=== PATIENT | female | born 1965 | race Hispanic/Latino ===

== ENCOUNTER 2016-08-04 15:56 | Emergency (ER) | payer OTHER ==
[2016-08-04 16:15] VITALS: TEMP 99
--- NOTE | 2016-08-04 17:22 | ED.PDOC ---
History of Present Illness - General Chief Complaint: ENT Problem Stated Complaint: sore throat Time Seen by Provider: 08/04/16 17:21 Source: patient Exam Limitations: no limitations - History of Present Illness Initial Comments: Ms. Alejandra Looney 50 y/o female with DM/htn stated that she had lunch with her son today and experience achy throat on swallowing and since it started its not any betterno fever no nasal congestion. Timing/Duration: this afternoon Severity: moderate EENT Location: throat Prearrival Treatment: no prearrival treatment Improving Factors: nothing Worsening Factors: nothing Associated Symptoms: sore throat Allergies/Adverse Reactions: Allergies NO KNOWN ALLERGY Allergy (Verified 04/27/12 13:48) Home Medications: Ambulatory Orders Amoxicillin [Amoxil] 500 mg PO TID #30 cap 08/04/16 Gabapentin 08/04/16 Imuran 08/04/16 Lisinopril 08/04/16 Metformin HCl 08/04/16 Review of Systems - Review of Systems Constitutional: States: no symptoms reported EENTM: States: see HPI Respiratory: States: no symptoms reported Cardiology: States: see HPI Gastrointestinal/Abdominal: States: no symptoms reported Genitourinary: States: no symptoms reported Musculoskeletal: States: no symptoms reported Skin: States: no symptoms reported Neurological: States: no symptoms reported Endocrine: States: no symptoms reported Hematologic/Lymphatic: States: no symptoms reported Past Medical History (General) - Patient Medical History Hx Stroke: No Hx Asthma: Yes Hx Congestive Heart Failure: No Hx Hypertension: Yes Hx Diabetes: Yes Hx Cancer: Yes - Kidney Hx MRSA: No Hx Other PMH: Yes - kidney cancer in remission Surgical History: cholecystectomy, tonsillectomy, other - myomectomy left nephrectomy ,d/c - Vaccination History Hx Influenza Vaccination: No Hx Pneumococcal Vaccination: Yes - Social History Hx Tobacco Use: No Family Medical History - Family History Mother Living Status: Still Living Hx Family Hypertension: Yes Hx Cardiac Disease: Yes - dad Hx Family Diabetes: Yes - several family members Physical Exam - Physical Exam General Appearance: Alert, No apparent distress Eye Exam: bilateral normal Ear Exam: bilateral ear: auricle normal, canal normal, TM normal Nasal Exam: normal inspection Throat Exam: other - pharyngeal erythema Neck: non-tender, full range of motion, supple, normal inspection Cardiovascular/Respiratory: regular rate, rhythm, no M/R/G, normal peripheral pulses, no JVD, normal breath sounds Abdominal Exam: non-tender, no organomegaly Neurologic: alert, normal mood/affect, oriented x 3 Skin Exam: normal color, warm/dry Progress - Results/Orders Results/Orders: 08/04/16 16:22 STREP A SCREEN CULTURE Stat Laboratory Results Group A Strep Rapid Negative (NEGATIVE) 08/04/16 16:22 Departure - Departure Clinical Impression: Pharyngitis Time of Disposition: 17:36 Disposition: Discharge to Home or Self Care Condition: Good Departure Forms: ED Discharge - Pt. Copy, Patient Portal Self Enrollment Instructions: Sore Throat Prescriptions: Amoxicillin [Amoxil] 500 mg PO TID #30 cap Home Medications: Ambulatory Orders Amoxicillin [Amoxil] 500 mg PO TID #30 cap 08/04/16 Gabapentin 08/04/16 Imuran 08/04/16 Lisinopril 08/04/16 Metformin HCl 08/04/16
[2016-08-04 17:51] VITALS: BP 160/97; O2SAT 99
== END 2016-08-04 17:50 | disposition home or self-care (01) ==
LOC: ER 15:56
DX: J02.9 Acute pharyngitis, unspecified (principal); I10 Essential (primary) hypertension; E11.9 Type 2 diabetes mellitus without complications; J45.909 Unspecified asthma, uncomplicated; Z85.528 Personal history of other malignant neoplasm of kidney; Z79.899 Other long term (current) drug therapy; Z90.5 Acquired absence of kidney

== ENCOUNTER → 2017-02-15 | Outpatient (CLI) | payer OTHER | END | disposition home or self-care (01) | LOC: YCFC.O 10:59 | DX: I10 Essential (primary) hypertension (principal); E66.01 Morbid (severe) obesity due to excess calories ==

== ENCOUNTER 2018-08-19 18:15 | Emergency (ER) | payer SELFPAY ==
[2018-08-19] MEDS ORDERED: ALUM & MAG HYDROX-SIMETHICONE 30 ML UD ONE (19:01)
[2018-08-19] MEDS ORDERED: LIDOCAINE HCL 2% (MOUTH-THROAT) 15 ML UD ONE (19:01)
[2018-08-19] MEDS: ALUM & MAG HYDROX-SIMETHICONE 30 ML, LIDOCAINE VISCOUS 2% 15 ML PO ONE ×2 (19:06)
[2018-08-19 19:50] VITALS: TEMP 98.3
--- NOTE | 2018-08-19 19:50 | ED.PDOC ---
History of Present Illness - General Chief Complaint: General Stated Complaint: Leg discomfort Time Seen by Provider: 08/19/18 18:43 Source: patient, RN notes reviewed, Vital Signs reviewed Exam Limitations: no limitations - History of Present Illness Initial Comments: c/o left leg pain & swelling. Intermittent. Onset approx 1 week ago. No known initiating trauma but has been aggravated by recent increased standing & walking. Worse with various positions. No previous episodes. Also, c/o mid thoracic back pain 24/7 x 2 days. Worse with palpation or ROM. Also, c/o "indigestion", increased belching & epigastric discomfort x at least 12 hrs. Method of Injury: unknown Improving Factors: rest Worsening Factors: movement Allergies/Adverse Reactions: Allergies Kiwi Allergy (Uncoded 08/19/18 18:34) Anaphylaxis Mussels Allergy (Uncoded 08/19/18 18:34) Vomitting Home Medications: Ambulatory Orders Azathioprine [Imuran] 50 mg PO DAILY PRN 08/04/16 Gabapentin 600 mg PO QID 08/04/16 Lisinopril 40 mg PO DAILY 08/04/16 metFORMIN HCL [Glucophage] 500 mg PO BID 08/04/16 Acetaminophen W/ Codeine [Tylenol W/ CODEINE #3] 1 ea PO Q8HRS PRN 3 Days #9 08/19/18 Cyclobenzaprine HCl [Flexeril] 10 mg PO TID PRN 3 Days #18 tab 08/19/18 Tramadol HCl 50 mg PO TID PRN 08/19/18 Review of Systems - Review of Systems Constitutional: States: no symptoms reported EENTM: States: no symptoms reported Respiratory: States: cough. Denies: short of breath Cardiology: States: no symptoms reported. Denies: chest pain Gastrointestinal/Abdominal: States: see HPI, abdominal pain, diarrhea Genitourinary: States: no symptoms reported Musculoskeletal: States: see HPI, back pain, muscle pain - left leg Skin: States: no symptoms reported Neurological: States: headache - recent, sporadic, none now. Denies: numbness, paresthesia, weakness Endocrine: States: see HPI, increased urine Hematologic/Lymphatic: States: no symptoms reported, other - taking ASA daily Past Medical History (General) - Patient Medical History Hx Stroke: No Hx Asthma: Yes Hx Congestive Heart Failure: No Hx Hypertension: Yes Hx Diabetes: Yes Hx Cancer: Yes - kidney CA Hx MRSA: No Surgical History: cholecystectomy, tonsillectomy, other - Vaccination History Hx Influenza Vaccination: No Hx Pneumococcal Vaccination: No - Social History Hx Tobacco Use: No Hx Alcohol Use: Yes - Infrequent - Female History Patient is a Female of Child Bearing Age (10 -59 yrs old): No Family Medical History - Family History Mother Living Status: Still Living Hx Family Hypertension: Yes Hx Cardiac Disease: Yes - dad Hx Family Diabetes: Yes - several family members Physical Exam - Physical Exam General Appearance: Alert, Comfortable, No apparent distress Eyes, Ears, Nose, Throat: normal ENT inspection Neck: supple, normal inspection Cardiovascular/Respiratory: regular rate, rhythm, no M/R/G, no JVD, normal breath sounds, no respiratory distress Gastrointestinal/Abdominal: non-tender, no organomegaly Back: normal inspection, no vertebral tenderness, decreased range of motion, other - left paraspinal tenderness localized at approx T8 level Leg: non-tender - subtle soft tissue swelling, no pitting edema, no evidence of injury, swelling Knee: normal inspection, normal ROM Ankle: normal inspection, no evidence of injury, normal ROM Neuro/Tendon: normal motor functions, no evidence tendon injury Mental Status: alert, oriented x 3 Skin: normal color, warm/dry Progress - Progress Progress: 08/19/18 20:32 Multiple symptoms over time that do not show clear association. Has been off her meds & is asking for refills. Does not go to the doctor as she has been directed. Her Wells' score for DVT is - 2 & her d-dimer is nml. Her back pain is reproducible with palpation & ROM. Her epigastric discomfort was clearly better with a GI cocktail. I will refill her lisinopril, add symptomatic meds for her pain but she was strongly encouraged to f/u with her PCP on Wednesday. - Results/Orders Results/Orders: WBC 11 Hgb 13 d-dimer 0.24 Tr <0.02 - EKG/XRAY/CT EKG: Sinus, no ST T wave changes - NSR @ 82, nml axis, intervals, QRS, ST segments & T waves XRAY: chest - no acute process Departure - Departure Clinical Impression: Leg pain, left, Noncompliance w/medication treatment due to intermit use of medication Hypertension Qualifiers: Hypertension type: unspecified Qualified Code(s): I10 - Essential (primary) hypertension Diabetes type 2, uncontrolled Qualifiers: Glycemic state: with hyperglycemia Qualified Code(s): E11.65 - Type 2 diabetes mellitus with hyperglycemia Back pain Qualifiers: Back pain location: back pain in other location Chronicity: acute Qualified Code(s): M54.9 - Dorsalgia, unspecified Gastritis Qualifiers: Gastritis type: unspecified gastritis Chronicity: acute Gastritis bleeding: presence of bleeding unspecified Qualified Code(s): K29.00 - Acute gastritis without bleeding Time of Disposition: 20:16 Disposition: Discharge to Home or Self Care Condition: Good Departure Forms: ED Discharge - Pt. Copy, Patient Portal Self Enrollment Instructions: Upper Back Pain (DC), Gastritis (DC) Diet: diabetic diet Referrals: Ana Busby NP [Primary Care Provider] - 08/22/18 Prescriptions: Acetaminophen W/ Codeine [Tylenol W/ CODEINE #3] 1 ea PO Q8HRS PRN 3 Days #9 PRN Reason: Moderate Pain Cyclobenzaprine HCl [Flexeril] 10 mg PO TID PRN 3 Days #18 tab PRN Reason: Muscle Spasms Home Medications: Ambulatory Orders Azathioprine [Imuran] 50 mg PO DAILY PRN 08/04/16 Gabapentin 600 mg PO QID 08/04/16 Lisinopril 40 mg PO DAILY 08/04/16 metFORMIN HCL [Glucophage] 500 mg PO BID 08/04/16 Acetaminophen W/ Codeine [Tylenol W/ CODEINE #3] 1 ea PO Q8HRS PRN 3 Days #9 08/19/18 Cyclobenzaprine HCl [Flexeril] 10 mg PO TID PRN 3 Days #18 tab 08/19/18 Tramadol HCl 50 mg PO TID PRN 08/19/18
--- NOTE | 2018-08-19 19:58 | RAD ---
EXAM DESCRIPTION: Chest,2 Views CLINICAL HISTORY: 52 years Female cough back pain COMPARISON: April 07, 2016. TECHNIQUE: Two view study of the chest was obtained. FINDINGS: Cardiac size is within normal limits. Central vessels are not increased. Density left lung base increased when correlated with the prior study. No additional infiltrates or effusions seen. No pneumothorax. IMPRESSION: Increasing density left lung base possibly lingular atelectatic change versus infiltrate or prominent cardiac fat pad. Remaining findings unchanged. Electronically signed by: Nallely Betancourt MD 08/19/2018 7:56 PM CDT
[2018-08-19] MEDS: HYDROcodone 10MG/APAP 325MG 1 EA TAB PO ONE (20:18)
[2018-08-19] MEDS: CYCLOBENZAPRINE HCL 10 MG TAB PO ONE (20:18)
[2018-08-19 20:41] VITALS: BP 166/93; O2SAT 99
== END 2018-08-19 20:30 | disposition home or self-care (01) ==
LOC: ER 18:15
DX: M79.605 Pain in left leg (principal); I10 Essential (primary) hypertension; E11.65 Type 2 diabetes mellitus with hyperglycemia; M54.6 Pain in thoracic spine; K29.00 Acute gastritis without bleeding; J45.909 Unspecified asthma, uncomplicated; Z91.14 Patient's other noncompliance with medication regimen; Z85.528 Personal history of other malignant neoplasm of kidney; Z90.49 Acquired absence of other specified parts of digestive tract; Z79.82 Long term (current) use of aspirin; Z79.84 Long term (current) use of oral hypoglycemic drugs; Z79.899 Other long term (current) drug therapy

== ENCOUNTER → 2018-11-25 | Outpatient (CLI) | payer OTHER | LOC: YCFC.O 15:43 | PROVIDERS: ATTEND Nurse Practitioner Family | DX: E11.65 Type 2 diabetes mellitus with hyperglycemia (principal) ==